=== PATIENT | male | born 1980 | race Caucasian/White ===

== ENCOUNTER 2018-08-10 08:37 | Emergency (ER) | payer MEDICAID, OTHER ==
[~2018-08-10] VITALS: Ht 172.7 cm; Wt 70.5 kg
[2018-08-10 09:47] VITALS: BP 120/69
== END 2018-08-10 10:14 | disposition home or self-care (01) ==
LOC: EMS 08:38
DX: S93.491A Sprain of other ligament of right ankle, initial encounter (principal); F12.90 Cannabis use, unspecified, uncomplicated; F15.90 Other stimulant use, unspecified, uncomplicated; X50.1XXA Overexertion from prolonged static or awkward postures, initial encounter; Y93.01 Activity, walking, marching and hiking; Y92.89 Other specified places as the place of occurrence of the external cause; Y99.8 Other external cause status
CPT/HCPCS: 29515

== ENCOUNTER 2022-11-22 19:00 | Inpatient (IN) | payer OTHER ==
[~2022-11-22] VITALS: Ht 172.7 cm; Wt 68.3 kg
[2022-11-22 20:07] LABS: HEMATOCRIT 36.3 % (41-53); HEMOGLOBIN 11.7 g/dL (13.5-17.5); MEAN CORPUSCULAR HEMOGLOBIN 30.5 pg (26.0-34.0); MEAN CORPUSCULAR HGB CONC 32.3 G/dL (31.0-37.0); MEAN CORPUSCULAR VOLUME 95 fL (80-100); PLATELET COUNT (AUTO) 585 K/uL (150-450); RED BLOOD CELL COUNT(AUTO) 3.84 MIL/uL (4.50-5.90); WHITE BLOOD COUNT (AUTO) 14.6 K/uL (4.5-11.0)
[2022-11-22 20:19] LABS: ANION GAP 5 mmol/L (8-16); CALCIUM, TOTAL 8.8 mg/dL (8.8-10.5); CARBON DIOXIDE 30 mmol/L (22-29); CHLORIDE 100 mmol/L (98-107); CREATININE 1.14 mg/dL (0.60-1.30); GLOMERULAR FILTR. RATE CALC > 60 mL/min (>60); GLUCOSE,RANDOM 134 mg/dL (70-110); POTASSIUM 3.6 mmol/L (3.5-5.1); SODIUM SERUM 135 mmol/L (136-145); UREA NITROGEN, BLOOD 10 mg/dL (7-18)
[2022-11-22 20:25] LABS: TROPONIN I-HIGH SENSITIVITY 5 ng/L (<76)
[2022-11-22 20:46] LABS: BAND NEUTROPHILS % (MANUAL) 19 % (0-5); LYMPHOCYTES % (MANUAL) 5 % (22-44); MONOCYTES % (MANUAL) 5 % (2-9); PLATELET MORPHOLOGY COMMENT LARGE PLTS PRESENT; SEGMENTED NEUTROPHILS % 71 % (40-70); TOTAL CELLS COUNTED 100; WBC MORPHOLOGY TOXIC GRANULATION
[2022-11-22] MEDS ORDERED: SODIUM CHLORIDE 0.9% 1,000 ML IV ONE (21:30)
[2022-11-22] MEDS ORDERED: FAMOTIDINE 20 MG/2 ML VIAL IVP ONE (21:30)
[2022-11-22] MEDS ORDERED: PB/HYOSCY/ATR/SCOP/LIDO/MAALOX 55 ML BOTTLE PO ONE (21:30)
[2022-11-22] MEDS ORDERED: HYDROmorphone HCL 2 MG/ML SYRINGE IVP ONE (22:30)
[2022-11-22] MEDS ORDERED: ONDANSETRON HCL 4 MG/2 ML VIAL IVP ONE (22:30)
[2022-11-23 00:53] LABS: ANION GAP 6 mmol/L (8-16); CALCIUM, TOTAL 7.8 mg/dL (8.8-10.5); CARBON DIOXIDE 25 mmol/L (22-29); CHLORIDE 105 mmol/L (98-107); GLOMERULAR FILTR. RATE CALC > 60 mL/min (>60); GLUCOSE,RANDOM 124 mg/dL (70-110); POTASSIUM 3.8 mmol/L (3.5-5.1); SODIUM SERUM 136 mmol/L (136-145); UREA NITROGEN, BLOOD 7 mg/dL (7-18)
[2022-11-23 00:55] LABS: ALANINE AMINOTRANSFERASE 46 U/L (12-78); ALBUMIN 1.7 g/dL (3.4-5.0); ALKALINE PHOSPHATASE 651 U/L (46-116); ASPARTATE AMINOTRANSFERASE 82 U/L (15-37); BILIRUBIN,TOTAL 1.3 mg/dL (0.1-1.0); TOTAL PROTEIN, SERUM 6.4 g/dL (6.4-8.2)
[2022-11-23] MEDS ORDERED: SODIUM CHLORIDE 0.9% 1,500 ML IV ONE (01:30)
[2022-11-23] MEDS ORDERED: ONDANSETRON HCL 4 MG/2 ML VIAL IVP PRN (01:30)
[2022-11-23] MEDS ORDERED: VANCOMYCIN HCL 1.5 GM in DEXTROSE 5%-WATER 250 ML IV ONE (01:45)
[2022-11-23 02:12] LABS: INR 1.1 (0.9-1.1); PROTHROMBIN TIME 11.4 SEC (9.4-11.6)
[2022-11-23 02:13] LABS: APPEARANCE,URINE CLEAR (CLEAR); BILIRUBIN,URINE NEGATIVE (NEGATIVE); COLOR,URINE YELLOW (YELLOW); GLUCOSE, URINE (UA) NEGATIVE (NEGATIVE); KETONES,URINE NEGATIVE (NEGATIVE); LEUKOCYTE ESTERASE ,URINE NEGATIVE (NEGATIVE); NITRATE,URINE NEGATIVE (NEGATIVE); OCCULT BLOOD,URINE NEGATIVE (NEGATIVE); PH,URINE 5.5 (5.0-8.0); PH,URINE DRUG SCREEN 5.5 (5.0-8.0); PROTEIN,URINE 30-70 mg/dL (NEGATIVE); SPECIFIC GRAVITIY, URINE 1.028 (1.003-1.030); UROBILINOGEN,URINE <=1.0 mg/dL (<=1.0)
[2022-11-23 02:18] LABS: LACTIC ACID 0.6 mmol/L (0.4-2.0)
[2022-11-23 02:19] LABS: ALCOHOL, URINE DRUG SCREEN NEGATIVE (NEGATIVE); BARBITURATE SCREEN, URINE NEGATIVE (NEGATIVE); BENZODIAZEPINES SCREEN,URINE NEGATIVE (NEGATIVE); CANNABINOID SCREEN,URINE NEGATIVE (NEGATIVE); COCAINE SCREEN,URINE NEGATIVE (NEGATIVE); METHADONE SCREEN, URINE NEGATIVE (NEGATIVE); OPIATE SCREEN,URINE POSITIVE (NEGATIVE); PHENCYCLIDINE SCREEN,URINE NEGATIVE (NEGATIVE)
[2022-11-23 02:37] LABS: AMPHET/METH SCREEN,URINE POSITIVE (NEGATIVE)
[2022-11-23] MEDS: RINGERS SOLUTION,LACTATED 1,000 ML IV SCH ×3 (03:01→21:43)
[2022-11-23] MEDS: PIPERACILLIN/TAZO 3.375 GM/D5W 50 ML IV SCH ×4 (03:55→21:43)
[2022-11-23] MEDS ORDERED: SODIUM CHLORIDE 0.9% 500 ML IV ONE (03:56)
[2022-11-23 04:00] VITALS: BP 115/82; PULSE 113; RESP 18; TEMP 98.6
[2022-11-23] MEDS: VANCOMYCIN 1GM/WATER(PEG/NADA) 200 ML IV SCH ×3 (08:23→23:29)
[2022-11-23] MEDS: OXYGEN THERAPY IH SCH ×2 (08:26→20:00)
[2022-11-23 12:56] VITALS: BP 116/83; PULSE 110; RESP 18; TEMP 98.7
[2022-11-23] MEDS ORDERED: IOHEXOL 240 MG/ML 20 ML VIAL ONE ×2 (14:25)
[2022-11-23 15:16] VITALS: BP 114/81; PULSE 108; RESP 18; TEMP 98
[2022-11-23] MEDS ORDERED: SODIUM CHLORIDE 0.9% 1,000 ML ONE (15:21)
[2022-11-23] MEDS ORDERED: SODIUM CHLORIDE 0.9% 1,000 ML IV ONE (15:30)
[2022-11-23] MEDS ORDERED: IOHEXOL 240 MG/ML 20 ML VIAL IVP ONE (16:18)
[2022-11-23 20:00] VITALS: BP 119/74; PULSE 91; RESP 18; TEMP 98.5
[2022-11-23] MEDS: MORPHINE SULFATE 2 MG/ML SYRINGE IVP PRN (23:29)
[2022-11-24] VITALS: BP 117/76; PULSE 91; RESP 18; TEMP 98.5
[2022-11-24] MEDS: PIPERACILLIN/TAZO 3.375 GM/D5W 50 ML IV SCH ×4 (03:27→21:51)
[2022-11-24 04:00] VITALS: BP 17/75; PULSE 91; RESP 18; TEMP 98
[2022-11-24 07:53] LABS: BASOPHILS % (AUTO) 0.3 % (0.0-2.0); EOSINOPHILS % (AUTO) 3.8 % (1.0-6.0); HEMATOCRIT 35.7 % (41-53); HEMOGLOBIN 11.5 g/dL (13.5-17.5); LYMPHOCYTES # (AUTO) 0.9 K/uL (1.0-4.8); LYMPHOCYTES % (AUTO) 10.2 % (22.0-44.0); MEAN CORPUSCULAR HEMOGLOBIN 30.9 pg (26.0-34.0); MEAN CORPUSCULAR HGB CONC 32.3 G/dL (31.0-37.0); MEAN CORPUSCULAR VOLUME 96 fL (80-100); MONOCYTES # (AUTO) 0.9 K/uL (0.1-1.0); MONOCYTES % (AUTO) 9.9 % (2.0-9.0); NEUTROPHILS # (AUTO) 6.7 K/uL (1.8-7.7); NEUTROPHILS % (AUTO) 75.8 % (40.0-70.0); PLATELET COUNT (AUTO) 450 K/uL (150-450); RED BLOOD CELL COUNT(AUTO) 3.73 MIL/uL (4.50-5.90); RED CELL DISTRIBUTION WIDTH 15.2 % (11.5-14.5); WHITE BLOOD COUNT (AUTO) 8.9 K/uL (4.5-11.0)
[2022-11-24 08:00] VITALS: BP 115/80; PULSE 90; RESP 18; TEMP 98.1
[2022-11-24] MEDS: OXYGEN THERAPY IH SCH ×2 (08:00→20:00)
[2022-11-24 08:22] LABS: ANION GAP 6 mmol/L (8-16); CALCIUM, TOTAL 8.2 mg/dL (8.8-10.5); CARBON DIOXIDE 28 mmol/L (22-29); CHLORIDE 102 mmol/L (98-107); CREATININE 0.86 mg/dL (0.60-1.30); GLOMERULAR FILTR. RATE CALC > 60 mL/min (>60); GLUCOSE,RANDOM 73 mg/dL (70-110); POTASSIUM 4.2 mmol/L (3.5-5.1); SODIUM SERUM 136 mmol/L (136-145); UREA NITROGEN, BLOOD 5 mg/dL (7-18)
[2022-11-24 08:37] LABS: VANCOMYCIN,RANDOM 20.8 mcg/mL (25.0-50.0)
[2022-11-24] MEDS: VANCOMYCIN 1GM/WATER(PEG/NADA) 200 ML IV SCH (10:27)
[2022-11-24] MEDS: RINGERS SOLUTION,LACTATED 1,000 ML IV SCH ×2 (10:28→17:42)
[2022-11-24 12:00] VITALS: BP 117/84; PULSE 93; RESP 18; TEMP 98.2
[2022-11-24] MEDS ORDERED: PROPOFOL 1% 20 ML VIAL IVP ONE (12:00)
[2022-11-24] MEDS ORDERED: LIDOCAINE/PF 2% 5 ML VIAL IM ONE (12:00)
[2022-11-24] MEDS ORDERED: ESMOLOL HCL 10 MG/ML 10 ML VIAL IVP ONE (12:00)
[2022-11-24] MEDS ORDERED: SUGAMMADEX SODIUM 200 MG/2 ML VIAL IVP ONE (12:00)
[2022-11-24] MEDS ORDERED: ONDANSETRON HCL 4 MG/2 ML VIAL IVP ONE (12:00)
[2022-11-24] MEDS ORDERED: ALBUTEROL SULFATE HFA 90 MCG/PUFF 8 GM INHALER IH ONE (12:00)
[2022-11-24 12:07] LABS: HEPATITIS C AB (EIA) Non Reactive (Non Reactive)
[2022-11-24 16:00] VITALS: BP 118/86; PULSE 96; RESP 18; TEMP 98.1
[2022-11-24] MEDS: MORPHINE SULFATE 2 MG/ML SYRINGE IVP PRN ×2 (17:42→23:02)
[2022-11-24 20:00] VITALS: BP 119/79; PULSE 98; RESP 17; TEMP 98
[2022-11-24] MEDS: HEPARIN SODIUM,PORCINE 5,000 UNITS/ML VIAL SQ SCH (20:18)
[2022-11-25] VITALS: BP 117/86; PULSE 98; RESP 17; TEMP 98
[2022-11-25] MEDS: RINGERS SOLUTION,LACTATED 1,000 ML IV SCH (03:51)
[2022-11-25] MEDS: PIPERACILLIN/TAZO 3.375 GM/D5W 50 ML IV SCH ×4 (03:52→22:55)
[2022-11-25 04:00] VITALS: BP 120/84; PULSE 98; RESP 17; TEMP 98
[2022-11-25] MEDS: MORPHINE SULFATE 2 MG/ML SYRINGE IVP PRN ×3 (04:52→17:11)
[2022-11-25 07:15] LABS: ANION GAP 3 mmol/L (8-16); CALCIUM, TOTAL 8.2 mg/dL (8.8-10.5); CARBON DIOXIDE 29 mmol/L (22-29); CHLORIDE 100 mmol/L (98-107); CREATININE 0.79 mg/dL (0.60-1.30); GLOMERULAR FILTR. RATE CALC > 60 mL/min (>60); GLUCOSE,RANDOM 84 mg/dL (70-110); POTASSIUM 3.7 mmol/L (3.5-5.1); SODIUM SERUM 132 mmol/L (136-145); UREA NITROGEN, BLOOD 3 mg/dL (7-18)
[2022-11-25 07:38] VITALS: BP 110/65; PULSE 94; RESP 18; TEMP 98
[2022-11-25] MEDS: OXYGEN THERAPY IH SCH (08:00)
[2022-11-25] MEDS: HEPARIN SODIUM,PORCINE 5,000 UNITS/ML VIAL SQ SCH ×3 (09:46→23:00)
[2022-11-25 11:35] VITALS: BP 114/75; PULSE 85; RESP 13; TEMP 98.1
[2022-11-25 19:50] VITALS: BP 117/69; PULSE 98; RESP 18; TEMP 98.9
[2022-11-26 00:20] VITALS: BP 118/73; PULSE 96; RESP 18; TEMP 98.8
[2022-11-26] MEDS ORDERED: MELATONIN 3 MG TABLET PO PRN (01:30)
[2022-11-26] MEDS: PIPERACILLIN/TAZO 3.375 GM/D5W 50 ML IV SCH (03:39)
== END 2022-11-26 04:47 | disposition left against medical advice (07) | DRG 813 ==
LOC: EMS 19:03 → 5S 11-23 02:30
PROVIDERS: ADMIT Internal Medicine; ATTEND Internal Medicine
PROC: BF101ZZ Fluoroscopy of Bile Ducts using Low Osmolar Contrast (ICD-10-PCS; 2022-11-23)
PROC: 0FC78ZZ Extirpation of Matter from Common Hepatic Duct, Via Natural or Artificial Opening Endoscopic (ICD-10-PCS; 2022-11-23)
PROC: 0FC98ZZ Extirpation of Matter from Common Bile Duct, Via Natural or Artificial Opening Endoscopic (ICD-10-PCS; principal; 2022-11-23 16:00)
DX: T85.520A Displacement of bile duct prosthesis, initial encounter (principal); E87.1 Hypo-osmolality and hyponatremia; K80.31 Calculus of bile duct with cholangitis, unspecified, with obstruction; R16.0 Hepatomegaly, not elsewhere classified; R17 Unspecified jaundice; Z53.21 Procedure and treatment not carried out due to patient leaving prior to being seen by health care provider; F19.10 Other psychoactive substance abuse, uncomplicated; Y83.8 Other surgical procedures as the cause of abnormal reaction of the patient, or of later complication, without mention of misadventure at the time of the procedure; Z91.199 Patient's noncompliance with other medical treatment and regimen due to unspecified reason; Z90.49 Acquired absence of other specified parts of digestive tract; Z87.891 Personal history of nicotine dependence; Y92.89 Other specified places as the place of occurrence of the external cause
CPT/HCPCS: 74176; 76700; 80048; 80053; 80202; 80307; 81003; 83605; 83690; 83735; 84145; 84484; 85007; 85025; 85027; 85610; 85730; 86803; 87040; 87081; 87340; 93005; 99291; J1170; J1644; J2270; J2405; J2543; J2704; J3370; J3490; J3535; J7030; J7040; J7060; J7120; Q9966; Q9967

== ENCOUNTER 2024-08-20 00:35 | Emergency (ER) | payer OTHER ==
[~2024-08-20] VITALS: Ht 172.7 cm; Wt 75.0 kg
[2024-08-20 00:46] VITALS: BP 105/74; PULSE 86; RESP 20; TEMP 98.2; O2SAT 100
[2024-08-20] MEDS: BACITRACIN 0.9 GM PACKET OINTMENT TP ONE (02:16)
[2024-08-20] MEDS: PERTUSS(ACELL),DIPH,TET/PF 0.5 ML SYRINGE [ADULT] IM. ONE (02:18)
[2024-08-20] MEDS: ACETAMINOPHEN 500 MG TABLET PO ONE (02:18)
[2024-08-20] MEDS ORDERED: ACET-3385 PO (03:07)
== END 2024-08-20 03:27 | disposition home or self-care (01) ==
LOC: EMS 00:47
DX: S63.501A Unspecified sprain of right wrist, initial encounter (principal); S16.1XXA Strain of muscle, fascia and tendon at neck level, initial encounter; F12.90 Cannabis use, unspecified, uncomplicated; K76.0 Fatty (change of) liver, not elsewhere classified; F17.210 Nicotine dependence, cigarettes, uncomplicated; F15.10 Other stimulant abuse, uncomplicated; V29.91XA Electric (assisted) bicycle rider (driver) (passenger) injured in unspecified traffic accident, initial encounter; Y93.89 Activity, other specified; Y92.89 Other specified places as the place of occurrence of the external cause; Y99.8 Other external cause status
CPT/HCPCS: 70450; 72125; 90471; 90715; 99285